=== PATIENT | female | born 1970 ===

== ENCOUNTER 2018-08-09 12:55 | Emergency (ER) | payer OTHER ==
[2018-08-09 13:22] VITALS: O2SAT 99; BMI 27.7
[2018-08-09] MEDS ORDERED: Sodium Chloride 0.9% 1,000 ML IV SCH (13:30)
--- NOTE | 2018-08-09 13:32 | C.PDOC ---
History Of Present Illness 48 y/o female with history of High Cholesterol presents to ED with c/o paresthesia to bilateral face, arms, chest and leg since 9am this morning associated with dizziness and generalized weakness. Patient states she developed symptoms developed after taking Topiramate 25mg for headache, not taken before. Patient admits to chills and nausea, denies headache, chest pain, sob, vomiting or any other complaints at this time. Time Seen by Provider: 08/09/18 13:11 Chief Complaint (Nursing): Weakness/Neurological Deficit History Per: Patient History/Exam Limitations: no limitations Onset/Duration Of Symptoms: Hrs Current Symptoms Are (Timing): Still Present Past Medical History Reviewed: Historical Data, Nursing Documentation, Vital Signs Vital Signs: Last Vital Signs Temp 98.1 F 08/09/18 13:04 Pulse 77 08/09/18 13:04 Resp 18 08/09/18 13:04 BP 151/95 H 08/09/18 13:04 Pulse Ox 99 08/09/18 13:04 - Medical History PMH: Hypercholesterolemia, Migraine Surgical History: No Surg Hx Family History: States: No Known Family Hx - Social History Hx Alcohol Use: No Hx Substance Use: No - Immunization History Hx Tetanus Toxoid Vaccination: No Hx Influenza Vaccination: No Hx Pneumococcal Vaccination: No Review Of Systems Constitutional: Positive for: Chills. Negative for: Fever Cardiovascular: Negative for: Chest Pain Respiratory: Negative for: Cough Gastrointestinal: Positive for: Nausea. Negative for: Vomiting, Abdominal Pain Skin: Negative for: Rash Neurological: Positive for: Weakness, Dizziness, Other (paresthesia ). Negative for: Headache Physical Exam - Physical Exam Appears: Non-toxic, No Acute Distress Skin: Warm, Dry, No Rash Head: Atraumatic, Normacephalic Eye(s): bilateral: Normal Inspection (No nystagmus) Oral Mucosa: Moist Neck: Normal ROM, Supple Cardiovascular: Rhythm Regular Respiratory: Normal Breath Sounds, No Rales, No Rhonchi, No Wheezing Gastrointestinal/Abdominal: Soft, No Tenderness, No Guarding, No Rebound Neurological/Psych: Oriented x3, Normal Speech, Normal Cognition, Normal Cranial Nerves, Normal Motor, Normal Sensation ED Course And Treatment - Laboratory Results Result Diagrams: 08/09/18 14:05 08/09/18 14:05 O2 Sat by Pulse Oximetry: 99 (RA) Pulse Ox Interpretation: Normal Medical Decision Making Medical Decision Making: Patient feeling better, walking steady, normal neuro, will d/c Disposition Counseled Patient/Family Regarding: Studies Performed, Need For Followup - Disposition Disposition: HOME/ ROUTINE Disposition Time: 15:58 Condition: STABLE Instructions: Paresthesias (DC) Forms: Gen Discharge Inst Greenlandic, [facility] (Greenlandic) - POA Present On Arrival: None - Clinical Impression Clinical Impression: Paresthesia and pain of both upper extremities, Paresthesia of bilateral legs - Scribe Statement The provider has reviewed the documentation as recorded by the Yas Oliveira All medical record entries made by the Yas were at my direction and personally dictated by me. I have reviewed the chart and agree that the record accurately reflects my personal performance of the history, physical exam, medical decision making, and the department course for this patient. I have also personally directed, reviewed, and agree with the discharge instructions and disposition.
[2018-08-09 14:12] LABS: BASO % 0.6 % (0.0-2.0); EOS # 0.1 K/uL (0.0-0.7); EOS % 1.2 % (0.0-4.0); HEMOGLOBIN 12.9 g/dL (11.0-16.0); LYMPH # 1.4 K/uL (1.0-4.3); LYMPH % 33.3 % (20.0-40.0); MEAN CELL VOLUME 84.1 fL (81.0-99.0); MEAN CORPUSCULAR HEMOGLOBIN 28.6 pg (27.0-31.0); MEAN PLATELET VOLUME 9.2 fL (7.2-11.7); MONO # 0.6 K/uL (0.0-0.8); MONO % 13.4 % (0.0-10.0); NEUT # 2.2 K/uL (1.8-7.0); NEUT % 51.5 % (50.0-75.0); NRBC % 0.1 % (0.0-2.0); RBC 4.52 Mil/uL (3.80-5.20); RED CELL DISTRIBUTION WIDTH 13.1 % (11.5-14.5); WHITE BLOOD COUNT 4.3 K/uL (4.8-10.8)
[2018-08-09 14:40] LABS: ALB/GLOB RATIO 1.3 (1.0-2.1); ALBUMIN 4.8 g/dL (3.5-5.0); BLOOD UREA NITROGEN 10 mg/dL (7-17); CALCIUM 10.2 mg/dl (8.6-10.4); GFR NON-AFRICAN AMERICAN > 60
[2018-08-09 14:42] LABS: ALT/SGPT 74 U/L (9-52); AST/SGOT 65 U/L (14-36)
[2018-08-09 16:33] VITALS: BP 140/89; PULSE 78; RESP 17; TEMP 98
--- NOTE | 2018-08-11 12:38 | CARD ---
APPROVED REPORT Date of service: 08/09/2018 EKG Measurement Heart [id number] <Conclusion> Normal sinus rhythm Nonspecific T wave abnormality Abnormal ECG
== END 2018-08-09 16:32 | disposition home or self-care (01) ==
LOC: C.ER 12:55
DX: R20.2 Paresthesia of skin (principal)

== ENCOUNTER 2018-10-23 09:31 | Emergency (ER) | payer OTHER ==
[2018-10-23 09:39] VITALS: BMI 26.5
[2018-10-23 09:45] VITALS: TEMP 98.3; O2SAT 98
--- NOTE | 2018-10-23 09:57 | C.PDOC ---
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 Pt denies trauma, SOB, chest pain, fever, numbness, weakness and abdominal pain. Pt took a tylenol last night for pain. Time Seen by Provider: 10/23/18 09:47 Chief Complaint (Nursing): Lower Extremity Problem/Injury History Per: Patient History/Exam Limitations: no limitations Onset/Duration Of Symptoms: Days (x2 weeks) Current Symptoms Are (Timing): Still Present Past Medical History Reviewed: Historical Data, Nursing Documentation, Vital Signs Vital Signs: Last Vital Signs Temp 98.3 F 10/23/18 09:39 Pulse 74 10/23/18 09:39 Resp 17 10/23/18 09:39 BP 138/86 10/23/18 09:39 Pulse Ox 98 10/23/18 09:39 - Medical History PMH: Hypercholesterolemia, Migraine Family History: States: No Known Family Hx - Social History Hx Alcohol Use: Yes Hx Substance Use: No - Immunization History Hx Tetanus Toxoid Vaccination: No Hx Influenza Vaccination: No Hx Pneumococcal Vaccination: No Review Of Systems Except As Marked, All Systems Reviewed And Found Negative. Constitutional: Negative for: Fever, Other (trauma) Cardiovascular: Negative for: Chest Pain Respiratory: Negative for: Shortness of Breath Gastrointestinal: Negative for: Abdominal Pain Musculoskeletal: Positive for: Leg Pain (left calf pain ) Neurological: Negative for: Weakness, Numbness Physical Exam - Physical Exam Appears: Non-toxic, No Acute Distress Skin: Warm, Dry Head: Normacephalic Eye(s): bilateral: Normal Inspection, EOMI Cardiovascular: Rhythm Regular Respiratory: Normal Breath Sounds Gastrointestinal/Abdominal: Soft, No Tenderness Back: Straight Leg Raising ((-) negative ) Extremity: Normal ROM (x4), Tenderness (posterior left knee to calf; no erythema), Capillary Refill (<2 sec), No Deformity, Swelling (left posterior calf ) Pulses: Left Dorsalis Pedis: Normal, Right Dorsalis Pedis: Normal Neurological/Psych: Oriented x3, Normal Speech, Normal Cognition, Normal Motor, Normal Sensation, Normal Reflexes ED Course And Treatment O2 Sat by Pulse Oximetry: 98 (RA) Pulse Ox Interpretation: Normal Medical Decision Making Medical Decision Making: Impression: muscular skeletal pain r/o DVT Plans: -- Toradol -- Venous Duplex Scan left leg Disposition - Disposition Referrals: [facility] [place] [Outside] [facility] [place] [Outside] [facility] [place] [Outside] Disposition: HOME/ ROUTINE Disposition Time: 12:21 Condition: GOOD Additional Instructions: Follow up with medicine clinic or your PCP. Take motrin for pain, apply warm pack. Prescriptions: Ibuprofen [Motrin] 600 mg PO Q6 #20 tab Instructions: Muscle Strain (DC) Forms: [email or web address] (Slovenian) - Clinical Impression Clinical Impression: Muscle strain - Scribe Statement The provider has reviewed the documentation as recorded by the Scribe Jackson Do Provider Attestation: All medical record entries made by the Scribe were at my direction and personally dictated by me. I have reviewed the chart and agree that the record accurately reflects my personal performance of the history, physical exam, medical decision making, and the department course for this patient. I have also personally directed, reviewed, and agree with the discharge instructions and disposition.
[2018-10-23 11:52] VITALS: BP 106/64; PULSE 67; RESP 18
--- NOTE | 2018-10-25 12:14 | VASCLAB ---
Date of service: 10/23/2018 PROCEDURE: Left Lower Extremity Venous Duplex Exam. HISTORY: Left calf pain PRIORS: None. TECHNIQUE: Left common femoral, femoral, popliteal and posterior tibial, peroneal and great saphenous veins were evaluated. Flow was assessed with color Doppler, compressibility, assessment of phasic flow and augmentation response. Report prepared by CAPRICE Diego FINDINGS: LEFT: 1. Common Femoral Vein: 1.1. Compressibility - Fully compressible: Thrombus - None : Flow - Phasic: Augmentation -Normal: Reflux - None. 2. Femoral Vein: 2.1. Compressibility - Fully compressible: Thrombus - None: Flow - Phasic: Augmentation -Normal: Reflux - None. 3. Popliteal Vein: 3.1. Compressibility - Fully compressible: Thrombus - None: Flow - Phasic: Augmentation -Normal: Reflux - None. 4. Posterior Tibial Vein: 4.1. Compressibility - Fully compressible: Thrombus - None: Flow - Phasic: Augmentation -Normal: Reflux - None. 5. Peroneal Vein: 5.1. Compressibility - Fully compressible: Thrombus - None: Flow - Phasic: Augmentation -Normal: Reflux - None. 6. Great Saphenous Vein: 6.1. Compressibility - Fully compressible: Thrombus - None: Flow - Phasic: Augmentation - Normal: Reflux - None. OTHER FINDINGS: IMPRESSION: No evidence of deep or superficial vein thrombosis of the left lower extremity with excellent venous flow. Normal valve function noted of the left side. Normal venous flow noted in the right common femoral vein.
== END 2018-10-23 12:21 | disposition home or self-care (01) ==
LOC: C.ER 09:31
DX: S86.912A Strain of unspecified muscle(s) and tendon(s) at lower leg level, left leg, initial encounter (principal); X58.XXXA Exposure to other specified factors, initial encounter
CPT/HCPCS: 93971; 96372; 99284; J1885